=== PATIENT | male | born 1965 | race Caucasian/White ===

== ENCOUNTER 2017-12-23 16:23 | Emergency (ER) | payer OTHER, SELFPAY ==
[2017-12-23 16:39] VITALS: BP 146/86; PULSE 93; RESP 18; TEMP 37.2; O2SAT 97; BMI 28.4
--- NOTE | 2017-12-23 17:09 | HMH.EDUTC ---
[facility] [place] Impression: Viral upper respiratory illness Disposition: Home, Self-Care Condition on Discharge: Good Instructions: DI for Viral Upper Respiratory Infection -- Adult Additional Instructions: * No sign of bacterial infection. Likely viral. Virus can take 7-14 days to run their course * Monitor Temp. Fever would be unexpected at this point so be sure to follow up if develops * Encourage fluids, water, gatorade, powerade, pedialyte if infant/toddler/child * warm salt water gargles * warm fluids * sore throat lozenges * sleep elevated * humidifier/vaporizer * Bromfed may cause drowsiness. Know how it effects you (or your child) before driving, caring for small children, or sending your child to school. No other antihistamines/allergy medications while taking bromfed. Prescriptions: Brompheniramine/Pseudoephed/Dm [Bromfed DM Cough Syrup 5mL] 10 ml PO QID PRN #240 ml PRN Reason: Cough Referrals: Jw Preston MD [Primary Care Provider] - (Follow up with primary care or if you can't get in there, UTC/ER, IMMEDIATELY for new or worsening symptoms OR no noticeable improvement over the next 72 hours. 911 for difficulty breathing or swallowing. ) Time of Disposition: 17:35 Medical Decision Making Vital Signs: 12/23/17 16:39 Temperature 98.9 F Temperature Source Temporal Artery Scan Pulse Rate [Left Radial] 93 H Respiratory Rate 18 Blood Pressure [Right Arm] 146/86 Blood Pressure Mean [Right Arm] 106 Blood Pressure Source [Right Arm] Automatic Cuff Blood Pressure Position [Right Arm] Sitting 02 Sat by Pulse Oximetry 97 Oxygen Delivery Method Room Air - Lab Data Lab results reviewed: Yes: I reviewed the patient's lab results. Flu A neg Flu B neg - Ravindra Inquiry Pt receiving controlled substance: No [facility] [place] - General Stated complaint: congestion Time Seen by Provider: 12/23/17 17:10 Mode of Arrival: Family Vehicle Source of Information: Patient Limitations: No Limitations Description of Symptoms (Recalled from Triage Doc. by RN): PT STATES HE STARTED FEELING BAD AROUND MONDAY WITH HEAD CONGESTION AND SINCE THEN THE CONGESTION HAS STARTED TO MOVE TO HIS CHEST. HEENT Symptoms (Recalled from RN notes): Yes (CONGESTION) Resp Symptoms (Recalled from RN notes): Yes (COUGH, CONGESTION) Skin Symptoms (Recalled from RN notes): No MS Symptoms (Recalled from RN notes): No Functional Status (Recalled from RN notes): NA - History of Present Illness Provider Complaint: c/o cough. Started with nasal congestion Monday, 4 days ago. Occasional cough since then that felt like due to tickle in throat but woke up this morning w/ cough more in chest, headache and fatigue. Denies SOA, wheezing. Granddaughter w/ flu less then one week ago. No treatment prior to arrival. - Related Data Home Medications Medication Instructions Recorded Confirmed Atorvastatin Calcium [Lipitor 40mg 40 mg PO DAILY 12/23/17 12/23/17 Tablet] Omeprazole [Omeprazole 20mg 20 mg PO DAILY 12/23/17 12/23/17 Capsule] Previous Rx's Medication Instructions Recorded Brompheniramine/Pseudoephed/Dm 10 ml PO QID PRN #240 ml 12/23/17 [Bromfed DM Cough Syrup 5mL] Allergies Allergy/AdvReac Type Severity Reaction Status Date / Time No Known Allergies Allergy Verified 12/23/17 16:43 - Worker's Comp Is this a Worker's Comp case?: No [facility] History I have reviewed the patient's past medical history: Yes Medical History: Reports:: Gastroesophageal Reflux Disease(GERD), Hyperlipidemia Denies:: Cancer, Diabetes Mellitus Type 1, Diabetes Mellitus Type 2, Hypertension, MRSA Other Surgeries: Yes: No Previous Surgery Amputation: No Fractures: No - Social History Smoking Status: Current every day smoker Tobacco Type: cigarettes Alcohol Intake: current Alcohol Intake Frequency:: 0-2 drinks per day - Psychiatric History Expresses thoughts of harming self/others: None Suicide Plan Description: No P
--- NOTE | 2017-12-23 17:16 | ED_ITS ---
[facility] [place] Clinical Impression: Viral upper respiratory illness Disposition: Home, Self-Care Condition on Discharge: Good Instructions: DI for Viral Upper Respiratory Infection -- Adult Additional Instructions: * No sign of bacterial infection. Likely viral. Virus can take 7-14 days to run their course * Monitor Temp. Fever would be unexpected at this point so be sure to follow up if develops * Encourage fluids, water, gatorade, powerade, pedialyte if infant/toddler/ child * warm salt water gargles * warm fluids * sore throat lozenges * sleep elevated * humidifier/vaporizer * Bromfed may cause drowsiness. Know how it effects you (or your child) before driving, caring for small children, or sending your child to school. No other antihistamines/allergy medications while taking bromfed. Prescriptions: Brompheniramine/Pseudoephed/Dm [Bromfed DM Cough Syrup 5mL] 10 ml PO QID PRN # 240 ml PRN Reason: Cough Referrals: Jw Preston MD [Primary Care Provider] - (Follow up with primary care or if you can't get in there, UTC/ER, IMMEDIATELY for new or worsening symptoms OR no noticeable improvement over the next 72 hours. 911 for difficulty breathing or swallowing. ) Time of Disposition: 17:35 Medical Decision Making Vital Signs: 12/23/17 16:39 Temperature 98.9 F Temperature Source Temporal Artery Scan Pulse Rate [Left Radial] 93 H Respiratory Rate 18 Blood Pressure [Right Arm] 146/86 Blood Pressure Mean [Right Arm] 106 Blood Pressure Source [Right Arm] Automatic Cuff Blood Pressure Position [Right Arm] Sitting 02 Sat by Pulse Oximetry 97 Oxygen Delivery Method Room Air - Lab Data Lab results reviewed: Yes: I reviewed the patient's lab results. Flu A neg Flu B neg - Ravindra Inquiry Pt receiving controlled substance: No [facility] [place] HPI - General Stated complaint: congestion Time Seen by Provider: 12/23/17 17:10 Mode of Arrival: Family Vehicle Source of Information: Patient Limitations: No Limitations Description of Symptoms (Recalled from Triage Doc. by RN): PT STATES HE STARTED FEELING BAD AROUND MONDAY WITH HEAD CONGESTION AND SINCE THEN THE CONGESTION HAS STARTED TO MOVE TO HIS CHEST. HEENT Symptoms (Recalled from RN notes): Yes (CONGESTION) Resp Symptoms (Recalled from RN notes): Yes (COUGH, CONGESTION) Skin Symptoms (Recalled from RN notes): No MS Symptoms (Recalled from RN notes): No Functional Status (Recalled from RN notes): NA - History of Present Illness Provider Complaint: c/o cough. Started with nasal congestion Monday, 4 days ago. Occasional cough since then that felt like due to tickle in throat but woke up this morning w/ cough more in chest, headache and fatigue. Denies SOA, wheezing. Granddaughter w/ flu less then one week ago. No treatment prior to arrival. - Related Data Home Medications Medication Instructions Recorded Confirmed Atorvastatin Calcium [Lipitor 40mg 40 mg PO DAILY 12/23/17 12/23/17 Tablet] Omeprazole [Omeprazole 20mg 20 mg PO DAILY 12/23/17 12/23/17 Capsule] Previous Rx's Medication Instructions Recorded Brompheniramine/Pseudoephed/Dm 10 ml PO QID PRN #240 ml 12/23/17 [Bromfed DM Cough Syrup 5mL] Allergies Allergy/AdvReac Type Severity Reaction Status Date / Time No Known Allergies Allergy Verified 12/23/17 16:43 - Worker's
[2017-12-23 17:36] LABS: UTC Influenza A Antigen Negative (Negative); UTC Influenza B Antigen Negative (Negative)
[2017-12-23 17:50] VITALS: BP 142/82; PULSE 85; RESP 18; TEMP 37; O2SAT 98
== END 2017-12-23 17:45 | disposition home or self-care (01) ==
PROVIDERS: Emergency Provider Nurse Practitioner Family; Family Provider Family Medicine; PCP Family Medicine
DX: J06.9 Acute upper respiratory infection, unspecified (principal); K21.9 Gastro-esophageal reflux disease without esophagitis; E78.5 Hyperlipidemia, unspecified; F17.210 Nicotine dependence, cigarettes, uncomplicated
CPT/HCPCS: 87804; 99202

== ENCOUNTER → 2021-01-15 08:27 | Outpatient (CLI) | payer BC, SELFPAY ==
[2021-01-15 09:14] LABS: Alanine Aminotransferase 41 U/L (12-78); Albumin Level 4.9 g/dl (3.5-5.0); Albumin/Globulin Ratio 1.5 (1.1-1.8); Alkaline Phosphatase 70 U/L (38-126); Anion Gap 15.7 mEq/L (5-15); Aspartate Amino Transferase 43 U/L (17-59); Bilirubin,Total 0.6 mg/dl (0.2-1.3); Blood Urea Nitrogen 14 mg/dl (9-20); Calcium 9.8 mg/dl (8.4-10.2); Carbon Dioxide 26 mmol/L (22.0-30.0); Chloride 104 mmol/L (98-107); Chol/HDL Ratio 4.5 (1-3.5); Cholesterol 199 mg/dl (140-200); Estimated Glomerular Filt Rate 88 ml/min (>60); GFR (African American) 106 ML/MIN (>60); Globulin 3.2 g/dL (1.3-3.2); Glucose 107 mg/dl (74-100); HDL Cholesterol 44 mg/dl (40-60); Potassium 4.7 mmoL/L (3.5-5.1); Sodium 141 mmol/L (136-145); Total Protein,Serum 8.1 g/dl (6.3-8.2); Triglycerides 399 mg/dl (30-150); VLDL Cholesterol 80 mg/dL (0-40)
[2021-01-15 09:25] LABS: Direct LDL Cholesterol 104.03 mg/dL (100-129)
[2021-01-15 09:45] LABS: Thyroid Stimulating Hormone 2.97 uIU/mL (0.465-4.68)
== END ==
PROVIDERS: Visit Provider Family Medicine
DX: E78.00 Pure hypercholesterolemia, unspecified (principal)
CPT/HCPCS: 36415; 80053; 80061; 84443

== ENCOUNTER → 2021-10-21 16:43 | Outpatient (CLI) | payer BC, SELFPAY | PROVIDERS: PCP Family Medicine; Visit Provider Nurse Practitioner | DX: Z20.822 Contact with and (suspected) exposure to COVID-19 (principal) | CPT/HCPCS: C9803; U0003; U0005 ==

== ENCOUNTER 2022-03-17 09:14 | Emergency (ER) | payer BC, SELFPAY ==
--- NOTE | 2022-03-17 09:40 | HMH.EDUTC ---
[facility] [place] Clinical Impression: Encounter for laboratory testing for COVID-19 virus Disposition: Home, Self-Care Condition on Discharge: Good Instructions: Preventing the Spread of Coronavirus Discharge Instructions Additional Instructions: Drink plenty of fluids. Take tylenol for pain or fever. Follow up with your regular doctor. GO TO THE ER FOR ANY WORSENING SYMPTOMS Referrals: Jw Preston MD [Primary Care Provider] - Time of Disposition: 09:40 Medical Decision Making - Medical Records Medical records reviewed: No: I reviewed the patient's medical records. - Ravindra Inquiry Pt receiving controlled substance: No Vital Signs: 03/17/22 09:45 03/17/22 09:48 Temperature 99.0 F 99.0 F Temperature Source Oral Pulse Rate 77 Pulse Rate [Left Radial] 77 Respiratory Rate 19 19 Blood Pressure 143/92 H Blood Pressure [Right Arm] 143/92 H Blood Pressure Mean [Right Arm] 109 02 Sat by Pulse Oximetry 96 Orders (Tests/Meds): ORDERS Category Date Time Status Covid-19 Nasal PCR ([facility]) Routine Lab 03/17/22 09:30 Received [facility] [place] - General Stated complaint: covid test Time Seen by Provider: 03/17/22 09:40 - History of Present Illness Provider Complaint: He is here for to have a covid-19 test so he can travel. He denies any symptoms. - Related Data Home Medications Medication Instructions Recorded Confirmed Atorvastatin Calcium [Lipitor 40mg 40 mg PO DAILY 12/23/17 12/23/17 Tablet] Omeprazole [Omeprazole 20mg 20 mg PO DAILY 12/23/17 12/23/17 Capsule] Previous Rx's Medication Instructions Recorded Brompheniramine/Pseudoephed/Dm 10 ml PO QID PRN #240 ml 12/23/17 [Bromfed DM Cough Syrup 5mL] Allergies Allergy/AdvReac Type Severity Reaction Status Date / Time No Known Allergies Allergy Verified 12/23/17 16:43 [facility] History - Hepatitis A Screen Attestation statement:: This patient has been screened for Hepatitis A risk factors. I have reviewed the patient's past medical history: Yes Medical History: Reports:: Gastroesophageal Reflux Disease(GERD), Hyperlipidemia Denies:: Cancer, Diabetes Mellitus Type 1, Diabetes Mellitus Type 2, Hypertension, MRSA Other Surgeries: Yes: No Previous Surgery Amputation: No Fractures: No - Social History Smoking Status: Current every day smoker Tobacco Type: cigarettes Alcohol Intake: current Alcohol Intake Frequency:: 0-2 drinks per day ROS Obtained: Yes All systems reviewed & no additional complaints - Constitutional Constitutional: Reports system reviewed and no additional complaints, except as docu - Eyes Eyes: Reports system reviewed and no additional complaints, except as docu - ENT Ears, Nose, Mouth, and Throat: Reports system reviewed and no additional complaints, except as docu - Cardiovascular Cardiovascular: Reports system reviewed and no additional complaints, except as docu - Respiratory Respiratory: Reports system reviewed and no additional complaints, except as docu - Gastrointestinal Gastrointestingal: Reports: system reviewed and no additional complaints, except as docu Physical Exam - General General appearance: alert, in no apparent distress - Head Head exam: atraumatic, normocephalic, normal inspection - Eye Eye exam: Present: normal appearance, PERRL, EOMI - ENT ENT exam: Present: normal exam, normal oropharynx, mucous membranes moist, TM's normal bilaterally, normal external ear exam - Neck Neck exam: Present: normal inspection, full ROM, trachea midline. Absent: meningismus, lymphadenopathy - Chest Chest inspection: Present: normal inspection, symmetric chest wall rise. Absent: tenderness - Respiratory Respiratory exam: Present: normal lung sounds bilaterally. Absent: respiratory distress - Cardiovascular Cardiovascular exam: Present: regular rate, normal rhythm. Absent: JVD - Abdominal Exam Abdominal exam: Present: soft, normal bow
[2022-03-17 09:45] VITALS: BP 143/92; PULSE 77; RESP 19; TEMP 37.2; O2SAT 96; BMI 28.4
[2022-03-17 09:48] VITALS: BP 143/92; PULSE 77; RESP 19; TEMP 37.2
== END 2022-03-17 09:49 | disposition home or self-care (01) ==
PROVIDERS: Emergency Provider Nurse Practitioner Family; PCP Family Medicine
DX: Z20.822 Contact with and (suspected) exposure to COVID-19 (principal)
CPT/HCPCS: 99212; C9803; G0463; U0003; U0005

== ENCOUNTER → 2023-05-05 06:42 | Outpatient (CLI) | payer SELFPAY ==
--- NOTE | 2023-05-05 07:07 | CT_ITS ---
FINAL REPORT TECHNIQUE: Thin-section axial images were obtained through the heart and coronary arteries per CT coronary calcium score protocol. The study was performed with techniques to keep radiation doses as low as reasonably achievable (ALARA). Individual dose reduction technique using automated exposure control adjustment of mA and/or kv according to the patient's size were employed. CLINICAL HISTORY: SCREENING COMPARISON: None FINDINGS: On the axial images, there is calcification within the LAD. This gives a coronary artery calcium score of 105 based on the Agatston scale. The coronary artery calcium score places the patient within the 66 percentile based on age and gender. The heart size is normal. There is no pleural pericardial effusion. Limited evaluation of the lungs reveals no suspicious nodule. IMPRESSION: Coronary artery calcium score of 105 placing patient in the 66 percentile based on age and gender. Reviewed, Interpreted and Dictated by Geovanny Levine III, MD Transcribed by Sobeida Yee Authenticated and [facility]
== END ==
PROVIDERS: PCP Family Medicine; Visit Provider Family Medicine
DX: Z13.6 Encounter for screening for cardiovascular disorders (principal)
CPT/HCPCS: 75571

== ENCOUNTER 2023-12-28 17:18 | Outpatient (CLI) | payer BC, SELFPAY ==
[2023-12-28 18:12] LABS: Basophils # 0.1 K/mm3 (0-0.2); Basophils % 0.6 % (0.1-2.0); Eosinophils # 0.2 K/mm3 (0.0-0.4); Hematocrit 40.9 % (42.0-52.0); Hemoglobin 13.6 g/dL (14.1-18.0); Lymphocytes # 1.9 K/mm3 (0.7-4.5); Lymphocytes % 16.9 % (10-50); Mean Corpuscular HGB Conc 33.2 g/dL (31.8-35.4); Mean Corpuscular Hemoglobin 31.1 pg (27.0-31.2); Mean Corpuscular Volume 93.6 fl (80-94); Mean Platelet Volume 8.3 fl (7.4-10.4); Monocytes # 0.9 K/mm3 (0.1-1.0); Neutrophils % 72.7 % (37.0-80.0); Platelet Count 160 K/mm3 (142-424); Red Blood Count 4.37 M/mm3 (4.60-6.20); Red Cell Distribution Width 13.2 % (11.5-17.5)
[2023-12-28 18:36] LABS: Creatine Kinase 112 U/L (55-170); Magnesium 2.1 mg/dl (1.6-2.3); Uric Acid 5.3 mg/dl (3.5-8.5)
[2023-12-28 18:39] LABS: Erythrocyte Sedimentation Rate 24 mm/hr (0-20)
[2023-12-28 18:51] LABS: 25-OH Vitamin D, Total 34.2 ng/mL (30-100)
[2023-12-28 19:23] LABS: Vitamin B12 585 pg/mL (239-931)
[2023-12-30 15:51] LABS: RA Latex Turbid. <10.0 IU/mL (<14.0)
[2024-01-01 15:17] LABS: Antinuclear Antibodies, IFA Negative (.)
[2024-01-05 02:59] LABS: Testosterone, Total, LC/MS 216 ng/dL (.)
== END 2023-12-28 23:59 ==
PROVIDERS: PCP Family Medicine; Visit Provider Physician Assistant
DX: R53.83 Other fatigue (principal); M25.50 Pain in unspecified joint; M79.10 Myalgia, unspecified site; E29.1 Testicular hypofunction
CPT/HCPCS: 36415; 82306; 82550; 82607; 83735; 84403; 84550; 85025; 85651; 86038; 86431

== ENCOUNTER 2024-02-19 14:21 | Outpatient (CLI) | payer BC, SELFPAY ==
[2024-02-19 14:55] LABS: Basophils # 0.1 K/mm3 (0-0.2); Basophils % 1.1 % (0.1-2.0); Eosinophils # 0.1 K/mm3 (0.0-0.4); Eosinophils % 1.3 % (0.1-12.0); Hematocrit 40.7 % (42.0-52.0); Hemoglobin 13.7 g/dL (14.1-18.0); Lymphocytes # 1.4 K/mm3 (0.7-4.5); Lymphocytes % 23.1 % (10-50); Mean Corpuscular HGB Conc 33.7 g/dL (31.8-35.4); Mean Corpuscular Hemoglobin 30.7 pg (27.0-31.2); Mean Corpuscular Volume 90.9 fl (80-94); Mean Platelet Volume 8.3 fl (7.4-10.4); Monocytes # 0.4 K/mm3 (0.1-1.0); Monocytes % 7.2 % (1.7-9.3); Neutrophils # 4.1 K/mm3 (1.8-7.8); Neutrophils % 67.4 % (37.0-80.0); Platelet Count 173 K/mm3 (142-424); Red Blood Count 4.47 M/mm3 (4.60-6.20); White Blood Count 6.1 K/mm3 (4.8-10.8)
[2024-02-19 15:54] LABS: Blood Urea Nitrogen 14 mg/dl (9-20); Estimated Glomerular Filt Rate 99 ml/min (>60); GFR (African American) 120 ML/MIN (>60)
[2024-02-21 08:02] LABS: Prolactin 9.1 ng/mL (3.6-25.2); Sex Hormone Binding Globulin 24.8 nmol/L (19.3-76.4)
[2024-02-21 09:12] LABS: DHEA-Sulfate 76.9 ug/dL (48.9-344.2); Estradiol 23.4 pg/mL (7.6-42.6); FSH 4.2 mIU/mL (1.5-12.4); LH 3.6 mIU/mL (1.7-8.6); PSA, Free 0.28 ng/mL; Prostate Specific Ag 0.8 ng/mL (0.0-4.0)
[2024-02-28 15:58] LABS: Dihydrotestosterone DHT 20
== END 2024-02-19 23:59 | disposition home or self-care (01) ==
LOC: LAB 14:22
PROVIDERS: PCP Family Medicine; Visit Provider Urology
DX: R53.83 Other fatigue (principal); N52.9 Male erectile dysfunction, unspecified; R68.82 Decreased libido; E29.1 Testicular hypofunction; N40.0 Benign prostatic hyperplasia without lower urinary tract symptoms
CPT/HCPCS: 36415; 82565; 82626; 82670; 83001; 83002; 84146; 84153; 84154; 84270; 84443; 84520; 85025

== ENCOUNTER 2024-07-10 08:41 | Outpatient (CLI) | payer BC, SELFPAY ==
[2024-07-10 09:07] LABS: Hematocrit 43.4 % (42.0-52.0); Hemoglobin 14.2 g/dL (14.1-18.0); Mean Corpuscular HGB Conc 32.6 g/dL (31.8-35.4); Mean Corpuscular Hemoglobin 30.9 pg (27.0-31.2); Mean Corpuscular Volume 94.7 fl (80-94); Platelet Count 184 K/mm3 (142-424); Red Blood Count 4.58 M/mm3 (4.60-6.20); Red Cell Distribution Width 13.3 % (11.5-17.5); White Blood Count 7.3 K/mm3 (4.8-10.8)
[2024-07-10 10:03] LABS: Chloride 107 mmol/L (98-107)
[2024-07-10 10:04] LABS: Albumin Level 4.7 g/dl (3.5-5.0); Potassium 4.2 mmoL/L (3.5-5.1); Sodium 140 mmol/L (136-145)
[2024-07-10 10:06] LABS: Blood Urea Nitrogen 17 mg/dl (9-20); Estimated Glomerular Filt Rate 116 ml/min (>60); GFR (African American) 140 ML/MIN (>60)
[2024-07-10 10:07] LABS: Alanine Aminotransferase 43 U/L (12-78); Albumin/Globulin Ratio 1.7 (1.1-1.8); Alkaline Phosphatase 55 U/L (38-126); Anion Gap 12.2 mEq/L (5-15); Aspartate Amino Transferase 37 U/L (17-59); Bilirubin,Total 0.6 mg/dl (0.2-1.3); Calcium 9.4 mg/dl (8.4-10.2); Carbon Dioxide 25 mmol/L (22.0-30.0); Globulin 2.7 g/dL (1.3-3.2); Glucose 111 mg/dl (74-100); Total Protein,Serum 7.4 g/dl (6.3-8.2)
[2024-07-10 11:31] LABS: Prostate Specific Ag, Diagnost 1.12 ng/ml (0.0-4.0)
[2024-07-11 08:41] LABS: Estradiol 11.7 pg/mL (7.6-42.6); LH 3.6 mIU/mL (1.7-8.6)
[2024-07-19 10:18] LABS: Testosterone, Total, LC/MS 255 ng/dL (.)
== END 2024-07-10 23:59 | disposition home or self-care (01) ==
LOC: LAB 08:42
PROVIDERS: PCP Family Medicine; Visit Provider Nurse Practitioner Family
DX: R79.89 Other specified abnormal findings of blood chemistry (principal)
CPT/HCPCS: 36415; 80053; 82670; 83002; 84153; 84403; 85027

== ENCOUNTER 2024-12-05 14:13 | Outpatient (CLI) | payer BC, SELFPAY ==
[2024-12-05 14:19] LABS: Coronavirus 19, PCR Not Detected (NotDetected); Influenza B, PCR Not Detected (NotDetected)
[2024-12-05 20:47] LABS: Influenza A, PCR Detected (NotDetected)
== END 2024-12-05 23:59 | disposition home or self-care (01) ==
LOC: LAB 14:14
PROVIDERS: PCP Family Medicine; Visit Provider Physician Assistant
DX: J06.9 Acute upper respiratory infection, unspecified (principal); Z72.0 Tobacco use
CPT/HCPCS: 87636

== ENCOUNTER 2025-02-18 08:32 | Outpatient (CLI) | payer BC, SELFPAY ==
[2025-02-19 08:16] LABS: Estradiol 33.6 pg/mL (7.6-42.6); Testosterone,Total 846 ng/dL (264-916)
== END 2025-02-18 23:59 | disposition home or self-care (01) ==
LOC: LAB 08:33
PROVIDERS: PCP Family Medicine; Visit Provider Nurse Practitioner Family
DX: R79.89 Other specified abnormal findings of blood chemistry (principal)
CPT/HCPCS: 36415; 82670; 84403

== ENCOUNTER 2025-08-28 09:19 | Outpatient (CLI) | payer BC, SELFPAY ==
--- OUTSIDE RECORDS SUMMARY | 2025-08-28 09:34 | XMS_ITS | Clinical Summary ---
Author Organization Healthcare Address [address] [place] [address] Care Team Providers Care Bridge Toll Collector Name Role Phone Jw Preston MD Primary Care Provider + [phone] Kacy Reza APRN, BOBBY Unavailable [phone] Allergies No known active allergies Medications losartan (Cozaar) 100 MG tablet Take 1 tablet (100 mg) by mouth. 05/22/2024 Active rosuvastatin (Crestor) 40 MG tablet Take 1 tablet (40 mg) by mouth. 05/22/2024 Active clomiPHENE (Clomid) 50 MG tablet Take 1/2 tablet (25 mg) every other day. 24 tablet 1 03/04/2025 Active anastrozole (Arimidex) 1 MG chemo tablet Take 1 tablet (1 mg total) by mouth 1 time per week. Swallow whole with a drink of water. 12 tablet 1 03/04/2025 Active Active Problems No known active problems Encounters Date Type Department Care Team Description 08/25/2025 Travel 06/03/2025 Telephone [facility] [address] [place] [id number] Kacy Reza, MIKA, DNP from Last 3 Months Family History Medical History Relation Name Comments Heart disease Father Noe Morley Relation Name Status Comments Father Noe Morley Alive Social History Tobacco Use Types Packs/Day Years Used Date Smoking Tobacco: Passive Smo ke Exposure - Never Smoker Cigars Smokeless Tobacco: Former Chew Quit: 08/23/2022 Tobacco Cessation:Counseling Given: Not Answered Alcohol Use Standard Drinks/Week Comments Yes 25 (1 standard drink = 0.6 oz pu re alcohol) PHQ-2 Answer Date Recorded Patient Health Questionnaire-2 Score 0 03/04/2025 PHQ-9 Answer Date Recorded Patient Health Questionnaire-9 Score 0 12/05/2024 Sex and Gender Information Value Date Recorded Sex Assigned at Not on file Legal Sex Male 10:16 AM EDT Gender Identity Not on file Sexual Orientation Not on file Last Filed Vital Signs Vital Sign Reading Time Taken Comments Blood Pressure 139/78 12/05/2024 10:48 AM EST Pulse 101 12/05/2024 10:48 AM EST Temperature - - Respiratory Rate 16 12/05/2024 10:48 AM EST Oxygen Saturation 96% 12/05/2024 10:48 AM EST Inhaled Oxygen Concentration - - Weight 99 kg (218 lb 4.1 oz) 12/05/2024 10:48 AM EST Height 180.3 cm (5' 11 ) 12/05/2024 10:48 AM EST Body Mass Index 30.44 12/05/2024 10:48 AM EST Plan of Treatment Upcoming Encounters Date Type Department Care Team (Late st Contact Info) Description 09/01/2025 8:40 AM EST Clinical Support [facility] [address] [place] [address] 09/08/2025 2:30 PM EST Office Visit [facility] [address] [place] [address] Kacy Reza P, RESORT KEEPER, DNP [address] [place] [address] Health Maintenance Due Date Last Done Comments [facility]-HIV Screening 1965 [facility]-Hepatitis C Screening 1965 [facility]-Infant/Child/Adol SDOH Screenings 1965 [facility]- SDOH Screenings 1983 [facility]-Adult SDOH Screenings 1983 [facility]-DTaP,Tdap,and Td Vaccines (1 - Tdap) 1984 [facility]-Hepatitis B Vaccines (1 of 3 - 19+ 3-dose series) 1984 CT Colonography 2010 Colonoscopy 2010 FIT-DNA 2010 FIT 2010 FOBT 2010 Sigmoidoscopy 2010 [facility]-Colorectal Cancer Screening 2010 [facility]-Pneumococcal Vaccine: 50+ Years (1 of 1 - PCV) 2015 [facility]-Zoster Vaccines (1 of 2) 2015 FAL-KCHBJ-16 Vaccine (3 - season) 2025 04/08/2021, 03/18/2021 [facility]-Influenza Vaccine (#1) 2025 [facility]-Depression Screening 03/04/2026 03/04/2025, 11/23 [facility]-Obesity Intervention Completed 025, 12/05/2024, 09/04/2024, Additional history exists HPV Vaccines Aged Out No longer eligi ble based on patient's age to complete this topic [facility]-HIB Vaccines Aged Out No longer e ligible based on patient's age to complete this topic [facility]-Hepatitis A Vaccines Aged Out No longer eligible based on patient's age to complete this topic [facility]-IPV Vaccines Aged Out No longer e ligible based on patient's age to complete this topic [facility]-Rotavirus Vaccines Aged Out No lo nger eligible based on patient's age to complete this topic Insurance [facility] Care Teams Bridge Toll Collector Relationship Specialty Start Date End Date Jw Preston MD [address] [facility] [address] [place] [address] PCP - General 03/04/25 Kacy Reza, RESORT KEEPER, DNP [address] [place] [address] Nurse Practitioner Urology 03/04/25
--- OUTSIDE RECORDS SUMMARY | 2025-08-28 09:34 | XMS_ITS | Encounter Summary ---
Author Organization [facility] Address [address] [place] [address] Care Team Providers Care Electrotype Caster Name Role Phone Jw Preston MD Primary Care Provider + [phone] Kacy Reza IMPREGNATING MACHINE OPERATOR, DNP Unavailable [phone] Encounter Details Date Type Department Care Team (Latest Contact Info) Description 08/25/2025 Travel Social History Tobacco Use Types Packs/Day Years Used Date Smoking Tobacco: Passive Smo ke Exposure - Never Smoker Cigars Smokeless Tobacco: Former Chew Quit: 08/23/2022 Alcohol Use Standard Drinks/Week Comments Yes 25 [...] on file Sexual Orientation Not on file documented as of this encounter Plan of Treatment Upcoming Encounters Date Type Department Care Team (Late st Contact Info) Description 09/01/2025 8:40 AM EST Clinical Support [facility] [address] [place] [address] 09/08/2025 2:30 PM EST Office Visit [facility] [address] [place] [address] Kacy Reza, IMPREGNATING MACHINE OPERATOR, DNP [address] [place] [address] documented as of this encounter Visit Diagnoses Not on filedocumented in this encounter Additional Health Concerns Assessment Noted Time PHQ-9 Depression Total Score: 0 12/05/19 25 10:56 AM EST A fall risk assessment has been complete d for the patient 03/04/2025 9:04 AM EDT A Body Mass Index follow-up plan has been documented for the patient 03/04/2025 11:41 AM EDT documented as of this encounter Care Teams Electrotype Caster Relationship Specialty Start Date End Date Jw Preston MD [facility] [place] [id number] PCP - General 03/04/25 Kacy Reza, MIKA, DNP [address] [facility] [address] [place] [address] Nurse Practitioner Urology 03/04/25 documented as of this encounter
--- OUTSIDE RECORDS SUMMARY | 2025-08-28 09:34 | XMS_ITS | Encounter Summary ---
Author Organization [facility] Address [address] [place] [address] Care Team Providers Care Land Acquisition Manager Name Role Phone Jw Preston MD Primary Care Provider + [phone] Kacy Reza APRN, DNP Unavailable [phone] Encounter Details Date Type Department Care Team (Late st Contact Info) Description 06/03/2025 Telephone [facility] [address] [place] [address] Kacy Reza APRN, DNP [address] [place] [address] Social History Tobacco Use Types Packs/Day Years [...] Description 09/01/2025 8:40 AM EST Clinical Support [facility] [address] [place] [address] 09/08/2025 2:30 PM EST Office Visit [facility] [address] [place] [address] Kacy Reza APRN, DNP [address] [address] documented as of this encounter Visit Diagnoses Not on filedocumented in this encounter Additional Health Concerns Assessment Noted Time PHQ-9 Depression Total Score: 0 12/05/19 10:56 AM EST A fall risk assessment has been complete d for the patient 03/04/2025 9:04 AM EDT A Body Mass Index follow-up plan has been documented for the patient 03/04/2025 11:41 AM EDT documented as of this encounter Care Teams Land Acquisition Manager Relationship Specialty Start Date End Date Jw Preston MD [facility] [address] [address] PCP - General 03/04/25 Kacy Reza APRN, DNP [address] [phone] Nurse Practitioner Urology 03/04/25 documented as of this encounter
[2025-08-28 10:08] LABS: Hematocrit 41.0 % (42.0-52.0); Hemoglobin 13.9 g/dL (14.1-18.0); Immature Granulocytes % 0.5 %; Mean Corpuscular HGB Conc 33.9 g/dL (31.8-35.4); Mean Corpuscular Hemoglobin 30.4 pg (27.0-31.2); Mean Corpuscular Volume 89.7 fl (80-94); Nucleated Red Blood Cells % 0 %; Platelet Count 200 K/mm3 (142-424); Red Blood Count 4.57 M/mm3 (4.60-6.20); Red Cell Distribution Width-SD 41.5 fL; White Blood Count 7.3 K/mm3 (4.8-10.8)
[2025-08-28 10:34] LABS: Albumin Level 4.9 g/dl (3.5-5.0); Chloride 105 mmol/L (98-107)
[2025-08-28 10:35] LABS: Potassium 4.4 mmoL/L (3.5-5.1); Sodium 139 mmol/L (136-145)
[2025-08-28 10:37] LABS: Blood Urea Nitrogen 16 mg/dl (9-20); Creatinine,Serum 0.70 mg/dl (0.66-1.25); Estimated Glomerular Filt Rate 115 ml/min (>60); GFR (African American) 140 ML/MIN (>60)
[2025-08-28 10:38] LABS: Alanine Aminotransferase 53 U/L (12-78); Albumin/Globulin Ratio 2.2 (1.1-1.8); Alkaline Phosphatase 53 U/L (38-126); Anion Gap 11.4 mEq/L (5-15); Aspartate Amino Transferase 51 U/L (17-59); Bilirubin,Total 0.8 mg/dl (0.2-1.3); Calcium 8.8 mg/dl (8.4-10.2); Carbon Dioxide 27 mmol/L (22.0-30.0); Globulin 2.2 g/dL (1.3-3.2); Glucose 117 mg/dl (74-100); Total Protein,Serum 7.1 g/dl (6.3-8.2)
[2025-08-28 10:53] LABS: Cholesterol 127 mg/dl (140-200); HDL Cholesterol 28 mg/dl (40-60); Triglycerides 98 mg/dl (30-150)
[2025-08-28 11:06] LABS: Prostate Specific Ag, Diagnost 1.60 ng/ml (0.0-4.0)
[2025-08-28 12:00] LABS: Hemoglobin A1C 6.1 % (4.0-6.0)
[2025-08-29 09:25] LABS: Testosterone,Total 674 ng/dL (264-916)
== END 2025-08-28 23:59 | disposition home or self-care (01) ==
LOC: LAB 09:25
PROVIDERS: PCP Family Medicine; Visit Provider Nurse Practitioner Family
DX: E28.0 Estrogen excess (principal); R79.89 Other specified abnormal findings of blood chemistry
CPT/HCPCS: 36415; 80053; 80061; 82670; 83036; 84153; 84403; 85025